=== PATIENT | male | born 1980 | race Caucasian/White ===

== ENCOUNTER 2018-08-05 08:50 | Emergency (ER) | payer SELFPAY ==
[~2018-08-05] VITALS: Ht 180.3 cm; Wt 93.6 kg
[2018-08-05 08:54] VITALS: BP 135/91
--- NOTE | 2018-08-05 09:37 | NUR ---
Patient/Caregiver given discharge instructions and they have confirmed that they understand the instructions. Patient ambulatory with steady gait.
== END 2018-08-05 09:38 | disposition home or self-care (01) ==
LOC: ED 09:25
DX: J02.0 Streptococcal pharyngitis (principal)
CPT/HCPCS: 87081; 87880; 99283